=== PATIENT | male | born 2005 | race Hispanic/Latino ===

== ENCOUNTER 2024-04-01 08:49 | Emergency (ER) | payer OTHER, SELFPAY ==
[2024-04-01 08:57] VITALS: BP 121/71
--- NOTE | 2024-04-01 09:41 | ED.GENMED ---
History of Present Illness
General
Chief Complaint: Ear Problem
Source: patient
Exam Limitations: none
Time Seen by Provider: 04/01/24 09:21
History of Present Illness
History of Present Illness:
18-year-old male presents complaining of right greater than left ear discomfort and difficulty hearing. He believes he has clogged ears both sides. He denies a fever. He is healthy otherwise. No other complaints
Past History
Past History
ED Past Medical History: None
ED Past Surgical History: None
Social History
Tobacco: Non-smoker
Alcohol: None
Drug: None
Personal: Single
Living: with family
Phy Exam
Physical Exam
Physical Exam:
General: Well-appearing male no acute respiratory distress
HEENT: Normocephalic atraumatic bilateral ear canals impacted with cerumen no adenopathy mastoids nontender
Course
Vital Signs
Initial and Last Documented VS:
Initial Vital Signs
Temp Pulse Resp BP Pulse Ox
98.3 F 65 16 121/71 99
04/01/24 08:57 04/01/24 08:57 04/01/24 08:57 04/01/24 08:57 04/01/24 08:57
Last Documented Vital Signs
Temp Pulse Resp BP Pulse Ox
98.3 F 65 16 121/71 99
04/01/24 08:57 04/01/24 08:57 04/01/24 08:57 04/01/24 08:57 04/01/24 08:57
MDM/Problems Addressed
Differential Diagnosis Includes:
Bilateral cerumen impaction. This was irrigated with warm tap water using a 18-gauge IV catheter with 30 mL syringe. Large amount of cerumen was expressed bilaterally. Ear canals are clear underlying TMs are normal hearing has returned to normal.
*Critical Care Note
Total Time (30-74mins, 75-104mins- exclusive of procedures): Not Applicable
ED Attending Note
-
Portions of this chart may have been created with voice recognition software.� Occasional wrong word or��sound alike� substitutions may have occurred due to the inherent limitations of voice recognition software.
Discharge Plan
Departure
Patient Disposition: Home (Routine Discharge)
Date of Disposition: 04/01/24
Time of Disposition: 09:45
Patient with high blood pressure during this ER visit?: No
Discharge Problem:
Cerumen impaction
Instructions: Ear Wax Impaction (DC)
Prescriptions:
No Action
calamine phenolated Lotion
1 applic topical TID PRN (Reason: itching) Qty: 180 0RF
prednisone 20 mg tablet
See Rx Instructions .ROUTE .COMPLEX Qty: 20 0RF
Rx Instructions:
Take 60mg (3 tabs) x3 days, then 40mg (2 tabs) x3 days, then 20mg (1 tab) x3 days, then 10mg (1/2 tab) x3 days
naproxen 500 mg tablet
500 mg PO BID PRN (Reason: Pain) Qty: 20 0RF
Referrals:
Gladys Hawkins MD [Family Provider] -
Activity Restrictions/Additional Instructions:
Keep ears clean and dry. Return if needed
Interventions
Interventions:
*Risk Screen - Suicide Last Done: 04/01/24 08:57
*General Assessment Last Done: 04/01/24 08:57
*Neglect/Abuse Screening Last Done: 04/01/24 08:57
Discharge Date and Time
Print Language: KOREAN
== END 2024-04-01 09:57 | disposition home or self-care (01) ==
LOC: EMR 08:49
PROVIDERS: EMERGENCY PHYSICIAN Emergency Medicine; FAMILY PHYSICIAN Family Medicine
DX: H92.03 Otalgia, bilateral (principal); H61.23 Impacted cerumen, bilateral
CPT/HCPCS: 99282; 69209